=== PATIENT | male | born 1990 | race Caucasian/White ===

== ENCOUNTER 2019-02-14 10:12 | Emergency (ER) | payer BC ==
[2019-02-14] MEDS ORDERED: cefTRIAXone(*) 1 GM in NS 0.9% 50 ML* 50 ML IVPB ONE (10:32)
[2019-02-14] MEDS ORDERED: Tetan/Diph/Pertus SYR(Tdap)* 0.5 ML SYR(BOOSTRIX) use SYR contains LATEX IM ONE (10:32)
[2019-02-14] MEDS ORDERED: Morphine 4 MG/ML VIAL (1 ml) 4 MG/ML VIAL IV ONE (10:33)
[2019-02-14] MEDS ORDERED: NS 0.9% 1000 ML** 1,000 ML IV ONE (10:33)
--- NOTE | 2019-02-14 10:37 | ED ---
Upper Extremity Pain - HPI Summary HPI Summary: This pt is a 28 y/o male [facility]/o left second finger injury and laceration s/p trauma with chop saw today. Pt reports he was using a chop saw today to cut wood when he saw the blade hit his left finger. He states he felt lightheaded immediately after and laid down on the ground. Pt notes associated nausea. Pt does not know when was his last tetanus shot. PMHx: plate and six screws in right ankle, ADHD. Denies tobacco or drug use, but admits to occasional alcohol. - History of Current Complaint Stated Complaint: LEFT FINGER INJURY PER [PT Hx Obtained From: Patient Mechanism Of Injury: Penetrating Trauma Onset/Duration: Started Hours Ago, Still Present Timing: Lasting Hours Severity Currently: Severe Pain Location: Finger - left Aggravating Factor(s): Nothing Alleviating Factor(s): Nothing Associated Signs & Symptoms: Positive: Nausea, Other - POSITIVE: lightheadedness. Negative: Fever Related History: Other: - s/p injury with motor/chop saw - Allergies/Home Medications Allergies/Adverse Reactions: Allergies Allergy/AdvReac Type Severity Reaction Status Date / Time No Known Allergies Allergy Verified 02/14/19 10:30 Home Medications: Home Medications Amphetamine MIXED SALT TAB* [Adderall TAB*] 10 mg PO DAILY 02/14/19 [History Confirmed 02/14/19] Amphetamine/Dextroamph ER(NF) [Adderal XR (NF)] 1 cap PO DAILY 02/14/19 [ History Confirmed 02/14/19] PMH/Surg Hx/FS Hx/Imm Hx Endocrine/Hematology History: Denies: Hx Diabetes Cardiovascular History: Denies: Hx Hypertension Musculoskeletal History: Reports: Hx Orthopedic Injury - right ankle Psychiatric History: Reports: Hx Attention Deficit Hyperactivity Disorder - Surgical History Surgical History: Yes Surgery Procedure, Year, and Place: Right ankle surgery (plate and six screws) - Immunization History Date of Tetanus Vaccine: unk - Family History Known Family History: Positive: Hypertension - Social History Alcohol Use: Occasionally Substance Use Type: Reports: None Smoking Status (MU): Never Smoked Tobacco Review of Systems Negative: Fever, Chills Positive: Nausea Musculoskeletal: Other - POSITIVE: pain in left finger Skin: Other - POSITIVE: left finger laceration Neurological: Other - POSITIVE: lightheadedness All Other Systems Reviewed And Are Negative: Yes Physical Exam - Summary Physical Exam Summary: VITAL SIGNS: Reviewed. GENERAL: Patient is a well-developed and nourished male who is lying comfortable in the stretcher. Patient is not in any acute respiratory distress. HEAD AND FACE: No signs of trauma. No ecchymosis, hematomas or skull depressions. No sinus tenderness. EYES: PERRLA, EOMI x 2, No injected conjunctiva, no nystagmus. EARS: Hearing grossly intact. Ear canals and tympanic membranes are within normal limits. MOUTH: Oropharynx within normal limits. NECK: Supple, trachea is midline, no adenopathy, no JVD, no carotid bruit, no c- spine tenderness, neck with full ROM. CHEST: Symmetric, no tenderness at palpation. LUNGS: Clear to auscultation bilaterally. No wheezing or crackles. CVS: Regular rate and rhythm, S1 and S2 present, no murmurs or gallops appreciated. ABDOMEN: Soft, non-tender. No signs of distention. No rebound, no guarding, and no masses palpated. Bowel sounds are normal. EXTREMITIES: Left second digit: can see tendons and bones, no sensation in left second digit. NEURO: Alert and oriented x 3. No acute neurological deficits. Speech is normal and follows commands. SKIN: Dry and warm. Patient is pale. Triage Information Reviewed: Yes Vital Signs On Initial Exam: Initial Vitals Temp Pulse Resp BP Pulse Ox 96 F 42 14 103/80 99 02/14/19 10:21 02/14/19 10:21 02/14/19 10:21 02/14/19 10:21 02/14/19 10:21 Vital Signs Reviewed: Yes Procedures - Sedation Patient Received Moderate/Deep Sedation with Procedure: No - Laceration/Wound Repair 1 Location: upper extremity - left second digit Anesthesia: Digital, 1.0%, Lido Laceration/Wound Explored: clean Diagnostics - Vital Signs Vital Signs Temp Pulse Resp BP Pulse Ox 02/14/19 10:21 96 F 42 14 103/80 99 - Laboratory Lab Statement: Any lab studies that have been ordered have been reviewed, and results considered in the medical decision making process. - Radiology Left hand XR Radiology Interpretation Completed By: Radiologist Summary of Radiographic Findings: IMPRESSION: Intra-articular comminuted fracture involving the second proximal and middle phalanges. Dr. Collazo has reviewed this report. Course/Dx - Course Assessment/Plan: This pt is a 28 y/o male [facility] [place]/o left second finger injury and laceration s/p trauma with chop saw today. Pt reports he was using a chop saw today to cut wood when he saw the blade hit his left finger. He states he felt light headed immediately after and laid down on the ground. Pt notes associated nausea. Pt does not know when was his last tetanus shot. PMHx: plate and six screws in right ankle, ADHD. Denies tobacco or drug use, but admits to occasional alcohol. Hand X ray IMPRESSION: Intra-articular comminuted fracture involving the second proximal and middle phalanges. In the ED course and the patient was given IV fluids, Zofran for nausea vomiting, morphine for pain. Patient also was given Rocephin 1 g IV and a tetanus vaccine. I performed a digital block with 1% lidocaine. Pt tolerated well with no complications. Discussed the case with Dr. Porter and he recommends for the patient to be transferred to a higher level of care. I discussed the case with Dr. Connor from [place] and reports that he doesnt have a hand surgeon, so he recommends for the patient to go to a hospital with a hand surgeon. I discussed the case with Elena from the transfer center and [facility] in [place] and she auto accepts the patient under Dr. Thompsno to the main ER in [facility]. The patient is agreeable with that plan. The patient is hemodynamically stable and the pain is controlled. There is no bleeding at this time. - Diagnoses Provider Diagnoses: Open fracture, Open fracture dislocation of digit - Physician Notifications Discussed Care of Patient With: Theron Martinez Time Discussed With Above Provider: 12:23 Instructed by Provider To: Other - Discussed the case with Dr. Martinez, orthopedic surgeon, who will call back. [12:47] Dr. Martinez recommends transferring the patient. [12:58] Discussed with Dr. Connor from [facility] who reports they don't have a hand surgeon. [13:13] Discussed the case with Elena , from the Transfer Center at [facility], who reports patient will be auto accepted under Dr. Thompson to the main ER at [address] [place] [address]. Discharge ED - Sign-Out/Discharge Documenting (check all that apply): Patient Departure - Transfer to [facility] - Discharge Plan Condition: Stable Disposition: TRANS HIGHER LVL OF CARE FAC Referrals: No Primary Care Phys,NOPCP [Primary Care Provider] - - Billing Disposition and Condition Condition: STABLE Disposition: Trans Higher Lvl of Care Fac - Attestation Statements Document Initiated by Scribe: Yes Documenting Scribe: Becki Camacho Provider For Whom Scribe is Documenting (Include Credential): Landen Collazo MD Scribe Attestation: Becki Amaro scribed for Landen Collazo MD on 02/14/19 at 1402. Scribe Documentation Reviewed: Yes Provider Attestation: The documentation as recorded by the Becki johnson accurately reflects the service I personally performed and the decisions made by Landen khan MD Status of Scribe Document: Viewed
[2019-02-14] MEDS: Ondansetron INJ* 2 MG/ML VIAL IV ONE ×2 (11:10→12:11)
[2019-02-14] MEDS ORDERED: Lidocaine 1% MPF ** 5 ML VIAL ONE (11:54)
[2019-02-14] MEDS ORDERED: Ondansetron INJ* 2 MG/ML VIAL ONE (12:09)
[2019-02-14 14:24] VITALS: BP 123/79
== END 2019-02-14 14:22 | disposition short-term general hospital (02) ==
LOC: ED 10:12
DX: S62.611B Displaced fracture of proximal phalanx of left index finger, initial encounter for open fracture (principal); S62.621B Displaced fracture of middle phalanx of left index finger, initial encounter for open fracture; Z23 Encounter for immunization; W31.2XXA Contact with powered woodworking and forming machines, initial encounter; Y92.9 Unspecified place or not applicable; F90.9 Attention-deficit hyperactivity disorder, unspecified type; Z79.899 Other long term (current) drug therapy
CPT/HCPCS: 90471; 90715; 96361; 96365; 96375; 99284; J0696; J2270; J2405